=== PATIENT | female | born 1955 | race Caucasian/White ===

== ENCOUNTER 2022-01-14 12:59 | Emergency (ER) | payer MEDICARE, MEDICAID ==
[~2022-01-14] VITALS: Ht 157.5 cm; Wt 98.0 kg
[2022-01-14 13:14] VITALS: BP 224/77
[2022-01-14] MEDS ORDERED: ALBUTEROL (13:14)
[2022-01-14] MEDS ORDERED: IBUPROFEN 400MG TABLET PO ONE (14:30)
[2022-01-14] MEDS ORDERED: IBUP-2028 MT (16:08)
== END 2022-01-14 16:58 | disposition home or self-care (01) ==
LOC: ER 12:59
DX: S09.8XXA Other specified injuries of head, initial encounter (principal); M54.2 Cervicalgia; M25.511 Pain in right shoulder; R42 Dizziness and giddiness; I10 Essential (primary) hypertension; W07.XXXA Fall from chair, initial encounter; Y93.89 Activity, other specified; Y92.513 Shop (commercial) as the place of occurrence of the external cause; E11.9 Type 2 diabetes mellitus without complications; E78.00 Pure hypercholesterolemia, unspecified; J45.909 Unspecified asthma, uncomplicated; Z79.84 Long term (current) use of oral hypoglycemic drugs; Z79.4 Long term (current) use of insulin
CPT/HCPCS: 73030; 82962; 99284